=== PATIENT | female | born 1980 | race Caucasian/White ===

== ENCOUNTER 2018-06-02 09:50 | Outpatient (REF) | payer OTHER, SELFPAY ==
[2018-06-02 21:11] LABS: BUN 17 mg/dL (7-18); CREATININE 1.01 mg/dL (0.55-1.02); Chloride 100 mmol/L (98-107); Glucose 90 mg/dL (70-100); Potassium 4.5 mmol/L (3.5-5.1); Sodium 138 mmol/L (136-145)
== END 2018-06-02 10:10 ==
LOC: NCHCN 09:50
PROVIDERS: Visit Provider Specialist/Technologist Athletic Trainer
DX: Z00.00 Encounter for general adult medical examination without abnormal findings (principal); Z13.228 Encounter for screening for other metabolic disorders
CPT/HCPCS: 80048

== ENCOUNTER 2018-12-13 09:30 | Outpatient (REF) | payer OTHER, SELFPAY ==
--- NOTE | 2018-12-13 09:00 | PAPFT_PTH ---
PATIENT: Baylee Garcia V LOC: [facility] U#:[id number] AGE/SX: 38/F ROOM: RE12/13/[address]: JONNA Oh : 1980 BED: DIS: 12/13/2018 SPEC #: [id number] RECD: 12/13/18 11:51 STATUS: MARIO ALBERTO REZia #: [id number] MISAEL: 12/13/18 09:[address]: Lia Savage DEPT: [facility] Cytology RECD BY: Katya Huddleston Tissues: 1 - CX/ENDOCX FOR PAP SMEARS Procedures: PAP THIN PREP/[facility] Screening HPV DNA PROBE Comments: [id number]
== END 2018-12-13 09:50 ==
LOC: LBN 09:30
PROVIDERS: PCP Nurse Practitioner Family; Visit Provider Nurse Practitioner Family
DX: Z12.4 Encounter for screening for malignant neoplasm of cervix (principal); Z11.51 Encounter for screening for human papillomavirus (HPV)
CPT/HCPCS: 88142; 87624

== ENCOUNTER 2019-06-03 10:34 | Outpatient (REF) | payer OTHER, SELFPAY ==
[2019-06-03 19:17] LABS: Anion Gap 9.2 mmol/L (3-11); BUN 18 mg/dL (7-18); CO2 29.8 mmol/L (21.0-32.0); CREATININE 0.96 mg/dL (0.55-1.02); Calcium 9.6 mg/dL (8.5-10.1); Chloride 102 mmol/L (98-107); Glucose 89 mg/dL (74-106); Potassium 4.7 mmol/L (3.5-5.1); Sodium 141 mmol/L (136-145)
== END 2019-06-03 10:54 ==
LOC: NCHCN 10:34
PROVIDERS: PCP Nurse Practitioner Family; Visit Provider Specialist/Technologist Athletic Trainer
DX: Z00.00 Encounter for general adult medical examination without abnormal findings (principal); R03.0 Elevated blood-pressure reading, without diagnosis of hypertension
CPT/HCPCS: 80048

== ENCOUNTER 2020-06-01 10:21 | Outpatient (REF) | payer OTHER, SELFPAY ==
[2020-06-01 19:45] LABS: Anion Gap 9.8 mmol/L (3-11); BUN 16 mg/dL (7-18); CO2 27.2 mmol/L (21.0-32.0); CREATININE 1.02 mg/dL (0.55-1.02); Calcium 9.2 mg/dL (8.5-10.1); Calculated LDL 92 mg/dL (<100); Chloride 102 mmol/L (98-107); Cholesterol 158 mg/dL (<200); Glucose 90 mg/dL (74-106); HDL Cholesterol 35 mg/dL (40-60); Potassium 4.6 mmol/L (3.5-5.1); Sodium 139 mmol/L (136-145); TSH 2.74 uIU/mL (0.36-3.74); Triglyceride 156 mg/dL (<150)
[2020-06-04 05:54] LABS: Vitamin D 25 Total 36.4 ng/ml (30-100)
== END 2020-06-01 10:41 ==
LOC: NCHCN 10:21
PROVIDERS: PCP Nurse Practitioner Family; Visit Provider Nurse Practitioner Family
DX: Z00.00 Encounter for general adult medical examination without abnormal findings (principal); I10 Essential (primary) hypertension; R53.83 Other fatigue; R63.5 Abnormal weight gain
CPT/HCPCS: 80048; 80061; 82306; 84443

== ENCOUNTER 2021-05-27 19:44 | Outpatient (REF) | payer OTHER, SELFPAY ==
[2021-05-27 18:17] LABS: Hemoglobin A1C 5.5 % (<5.7)
[2021-05-27 18:56] LABS: Anion Gap 11.5 mmol/L (3-11); BUN 18 mg/dL (7-18); CO2 26.5 mmol/L (21.0-32.0); Chloride 101 mmol/L (98-107); Glucose 86 mg/dL (74-106); Potassium 4.2 mmol/L (3.5-5.1); Sodium 139 mmol/L (136-145); TSH (W/Ref FT4) 2.88 uIU/mL (0.36-3.74); Vitamin B12 448 pg/mL (193-986)
== END 2021-05-27 19:45 | disposition home or self-care (01) ==
LOC: NCHCN 19:44
PROVIDERS: PCP Nurse Practitioner Family; Visit Provider Nurse Practitioner Family
DX: I10 Essential (primary) hypertension (principal); R20.2 Paresthesia of skin
CPT/HCPCS: 80048; 82607; 83036; 84443

== ENCOUNTER 2022-01-13 10:24 | Outpatient (REF) | payer OTHER, SELFPAY ==
--- NOTE | 2022-01-13 10:00 | PAPFT_PTH ---
PATIENT: Baylee Garcia V LOC: [facility] U#:[id number] AGE/SX: 41/F ROOM: RE01/13/[address]: JONNA Oh : 1980 BED: DIS: 01/13/2022 SPEC #: [id number] RECD: 01/13/22 12:33 STATUS: MARIO ALBERTO REQ #: [id number] MISAEL: 01/13/22 10:[address]: Lia Savage DEPT: [facility] Cytology RECD BY: Kami Aragon ENTERED: 01/13/22 12:33 SP TYPE: PAPFT OTHR DR: Adri Cherry Tissues: 1 - CX/ENDOCX FOR PAP SMEARS Procedures: PAP THIN PREP/[facility] Screening HPV DNA PROBE Comments: [id number]
== END 2022-01-13 10:25 | disposition home or self-care (01) ==
LOC: LBN 10:24
PROVIDERS: PCP Nurse Practitioner Family; Visit Provider Nurse Practitioner Family
DX: Z12.4 Encounter for screening for malignant neoplasm of cervix (principal); Z11.51 Encounter for screening for human papillomavirus (HPV)
CPT/HCPCS: 88142; 87624

== ENCOUNTER 2022-09-03 17:01 | Outpatient (REF) | payer OTHER, SELFPAY ==
[2022-09-03 17:36] LABS: Calculated LDL 79 mg/dL (<100); Cholesterol 149 mg/dL (<200); HDL Cholesterol 40 mg/dL (40-60); Triglyceride 152 mg/dL (<150)
== END 2022-09-03 17:02 | disposition home or self-care (01) ==
LOC: NCHCN 17:01
PROVIDERS: PCP Nurse Practitioner Family; Visit Provider Nurse Practitioner Family
DX: I10 Essential (primary) hypertension (principal); E78.1 Pure hyperglyceridemia
CPT/HCPCS: 80061

== ENCOUNTER 2023-01-01 15:46 | Outpatient (REF) | payer OTHER, SELFPAY ==
--- NOTE | 2023-01-01 09:30 | SKI_PTH ---
PATIENT: Baylee Garcia V LOC: [facility]#:[id number] AGE/SX: 42/F ROOM: RE01/01/[address]: Miriam Ruiz : 1980 BED: DIS: 01/01/2023 SPEC #: [id number] RECD: 01/01/23 17:16 STATUS: MARIO ALBERTO REQ #: [id number] MISAEL: 01/01/23 09:[address]: Miriam Ruiz DEPT: Surgical Specimen RECD BY: Kami Aragon ENTERED: 01/01/23 17:18 SP TYPE: SKI OTHR DR: Adri Cherry Tissues: 1 - SKIN BIOPSY(SHAVE/PUNCH) Procedures: SKIN LEVEL 4 Comments: [id number]
== END 2023-01-01 15:47 | disposition home or self-care (01) ==
LOC: NCHCN 15:46
PROVIDERS: PCP Nurse Practitioner Family; Visit Provider Nurse Practitioner Family
DX: L98.8 Other specified disorders of the skin and subcutaneous tissue (principal); L81.8 Other specified disorders of pigmentation; L30.8 Other specified dermatitis
CPT/HCPCS: 88305

== ENCOUNTER → 2023-02-25 01:45 | Outpatient (CLI) | payer OTHER, SELFPAY ==
--- NOTE | 2023-02-25 08:45 | DI.MAMMO_ITS ---
Exam(s) MAMMO SCREENING EXAM: MAMMO SCREENING CLINICAL HISTORY: screening. TECHNIQUE: Bilateral full field digital CC and MLO mammographic images were obtained with 3D tomosyn thesis and utilizing computer aided detection (CAD). COMPARISON: None. This is a baseline mammogram on this 42-year-old patient. FINDINGS: Nodular density in the upper-outer quadrant of the right breast has the appearance of a probable kristina gn intramammary lymph node. There also a few other asymmetric densities-possible small nodules which also have benign appearance, probably benign intramammary lymph nodes. There are no spiculated masses nor malignant appearing microcalcification groups. There is no significant architectural distortion nor skin thickening-retraction. IMPRESSION: None findings. No radiographic evidence malignancy. BI-RADS Category 2 - Benign Findings Breast Density - Category B - Scattered areas of fibroglandular density Breast density Category C or D implies that the patient has dense breast tissue. Dense breast tissue can make it harder to find cancer on a mammogram. Dense breast tissue is also associated with an incr eased risk of breast cancer. This information about the result of the mammogram report was provided to the patient to raise their awareness. Use this report when you speak with the patient about their risks for breast cancer, which includes their family history. At that time, you may recommend additional screening tests (Ultrasoun d or MRI) as these tests may add significant information. A negative radiographic report should not delay biopsy if a dominant or clinically suspicious mass is present. Up to ten percent of cancers are not identified on mammography. A negative report may reinforce clinical impression. Adenosis and dense breasts may obscure an underlying neoplasm. False positive reports average 6 to 10%. Patient will receive a letter notifying them of these results.
== END ==
PROVIDERS: PCP Nurse Practitioner Family; Visit Provider Nurse Practitioner Women's Health
DX: Z12.31 Encounter for screening mammogram for malignant neoplasm of breast (principal)
CPT/HCPCS: 77063; 77067

== ENCOUNTER 2023-02-25 03:21 | Outpatient (CLI) | payer OTHER, SELFPAY ==
[2023-02-25 18:29] LABS: Prolactin 139.7 ng/mL (See Note)
== END 2023-02-25 03:22 | disposition home or self-care (01) ==
LOC: LBO 03:21
PROVIDERS: PCP Nurse Practitioner Family; Visit Provider Nurse Practitioner Women's Health
DX: E22.1 Hyperprolactinemia (principal); N91.2 Amenorrhea, unspecified
CPT/HCPCS: 36415; 84146

== ENCOUNTER 2023-06-01 18:08 | Outpatient (REF) | payer OTHER, SELFPAY ==
[2023-06-01 16:08] LABS: ESR 57 mm/hr (0-20)
[2023-06-01 16:28] LABS: Albumin 3.8 g/dL (3.4-5.0); Alkaline Phosphatase 82 U/L (46-116); BUN 17 mg/dL (7-18); Bilirubin, Total 0.9 mg/dL (0.2-1.0); Calcium 9.9 mg/dL (8.5-10.1); Estimated GFR 73.04 (mL/min/1.73m2); Glucose 111 mg/dL (74-106); Sodium 137 mmol/L (136-145); Total Protein 8.1 g/dL (6.4-8.2)
[2023-06-01 16:29] LABS: ALT 39 U/L (14-59); AST 25 U/L (15-37); Anion Gap 9.5 mmol/L (3-11); C-Reactive Protein 2.49 mg/dL (0.0-0.3); CO2 26.5 mmol/L (21.0-32.0); Chloride 101 mmol/L (98-107); Potassium 4.3 mmol/L (3.5-5.1)
[2023-06-01 16:35] LABS: Hemoglobin A1C 5.5 % (<5.7)
== END 2023-06-01 18:09 | disposition home or self-care (01) ==
LOC: NCHCN 18:08
PROVIDERS: PCP Nurse Practitioner Family; Visit Provider Nurse Practitioner Family
DX: I10 Essential (primary) hypertension (principal); G89.29 Other chronic pain; R79.82 Elevated C-reactive protein (CRP); R70.0 Elevated erythrocyte sedimentation rate; R73.09 Other abnormal glucose
CPT/HCPCS: 80053; 85652; 83036; 86140

== ENCOUNTER 2023-07-07 03:38 | Outpatient (CLI) | payer MEDICAID, SELFPAY ==
[2023-07-07 18:08] LABS: Rheumatoid Factor <8.6 IU/mL (<12.0)
[2023-07-08 12:02] LABS: ANA Interpretation Negative (Negative)
== END 2023-07-07 03:39 | disposition home or self-care (01) ==
PROVIDERS: PCP Nurse Practitioner Family; Visit Provider Nurse Practitioner Family
DX: R53.83 Other fatigue (principal); R79.82 Elevated C-reactive protein (CRP)
CPT/HCPCS: 36415; 84443; 86038; 86431

== ENCOUNTER → 2023-11-10 14:02 | Outpatient (CLI) | payer MEDICAID, SELFPAY ==
--- NOTE | 2023-11-10 | DI.RAD_ITS ---
Exam(s) XR CHEST 2V PA LATERAL EXAM: XR CHEST 2V PA LATERAL CLINICAL HISTORY: R05.9 cough, x 5 days, SOB TECHNIQUE: 2D digital imaging was performed of the chest. Two images were obtained. PA and lateral views were obtained. COMPARISON: No exams were available for comparison FINDINGS: There is poor inspiration with crowding of the vessels. MEDIASTINUM: Normal. HEART: Normal. PULMONARY VASCULATURE: Normal. LUNGS: There is an opacity in the right perihilar region suspicious for an infiltrate. On the latera l view, it appears to lie in the right lower lobe. There may also be a left perihilar component of t he infiltrate. PLEURAL SPACE: No pleural effusion or pneumothorax. BONE:Within normal limits for the patient's age. OTHER FINDINGS:There is elevation of the right hemidiaphragm. IMPRESSION: There is a right lower lobe opacity. In the appropriate clinical setting pneumonia should be conside red. A follow-up examination in 1 month is recommended to document complete resolution and to exclud e other etiology. If the finding persists at that time, a CT scan of the chest with contrast should be obtained for further characterization. DATA REPOSITORY: RADIATION DOSE DELIVERED:
== END ==
PROVIDERS: PCP Nurse Practitioner Family; Visit Provider Nurse Practitioner Family
DX: R91.8 Other nonspecific abnormal finding of lung field (principal)
CPT/HCPCS: 71046

== ENCOUNTER → 2023-12-08 02:03 | Outpatient (CLI) | payer MEDICAID, SELFPAY ==
--- NOTE | 2023-12-08 10:03 | DI.RAD_ITS ---
Exam(s) XR CHEST 2V PA LATERAL EXAM: XR CHEST 2V PA LATERAL CLINICAL HISTORY: COMMUNITY ACQUIRED PNEUMONIA, J18.9, F/U PNEUMONIA TECHNIQUE: 2D digital imaging was performed. Two views. COMPARISON: CR XR CHEST 2V PA LATERAL from 11/10/2023 FINDINGS: HEART: Normal size. Aorta: Not dilated. PULMONARY VASCULATURE: Normal. MEDIASTINUM: Unremarkable. LUNGS: Clear. Previously noted right perihilar opacity no longer present. PLEURAL SPACE: No pleural effusion or pneumothorax. BONE:Unremarkable for age. SOFT TISSUES: Unremarkable. IMPRESSION: Resolution of previously noted right lower lobe pneumonia. DATA REPOSITORY: RADIATION DOSE DELIVERED:
== END ==
PROVIDERS: PCP Nurse Practitioner Family; Visit Provider Nurse Practitioner Family
DX: J18.9 Pneumonia, unspecified organism (principal)
CPT/HCPCS: 71046

== ENCOUNTER 2024-09-19 18:22 | Outpatient (REF) | payer MEDICAID, SELFPAY ==
[2024-09-19 19:10] LABS: Bilirubin Negative (Negative); Blood Small (Negative); Clarity Clear (Clear); Glucose Negative (Negative); Ketones Negative (Negative); Leukocyte Esterase Negative (Negative); Nitrite Negative (Negative); Specific Gravity 1.015 (1.005-1.025); Urobilinogen 0.2 mg/dL (Up to 0.2); pH 5.5 (5-8)
[2024-09-19 19:19] LABS: Bacteria Negative HPF (Negative); C & S Indicated? No/Sq. Contamination; Casts Negative LPF (Negative); Crystals Negative HPF (Negative); Epithelial Cells Many HPF (Negative); Mucus Negative (Negative); RBC 0-2 HPF (0-2); WBC Negative HPF (0-5)
== END 2024-09-19 18:23 | disposition home or self-care (01) ==
LOC: NCHCN 18:22
PROVIDERS: PCP Nurse Practitioner Family; Visit Provider Nurse Practitioner Family
DX: R30.0 Dysuria (principal)
CPT/HCPCS: 81003; 81015; 87480; 87510; 87660

== ENCOUNTER 2024-10-07 16:19 | Outpatient (REF) | payer MEDICAID, SELFPAY ==
[2024-10-13 15:10] LABS: Interpretation 100% Uric acid.; Source: Passed Stone
== END 2024-10-07 16:20 | disposition home or self-care (01) ==
LOC: NCHCN 16:19
PROVIDERS: PCP Nurse Practitioner Family; Visit Provider Family Medicine
DX: N20.0 Calculus of kidney (principal)
CPT/HCPCS: 82365

== ENCOUNTER 2024-10-26 09:10 | Outpatient (REF) | payer MEDICAID, SELFPAY ==
[2024-10-26 20:00] LABS: Anion Gap 9.3 mmol/L (3-11); BUN 24 mg/dL (7-18); CO2 26.7 mmol/L (21.0-32.0); CREATININE 1.4 mg/dL (0.55-1.02); Calcium 9.9 mg/dL (8.5-10.1); Chloride 103 mmol/L (98-107); Estimated GFR 48.17 (mL/min/1.73m2); Glucose 167 mg/dL (74-106); Potassium 4.3 mmol/L (3.5-5.1); Sodium 139 mmol/L (136-145)
[2024-10-26 20:59] LABS: Hemoglobin A1C 5.7 % (<5.7)
[2024-10-28 09:57] LABS: HIV-1/2 Ag & Ab Screen Negative (Negative)
[2024-10-28 10:21] LABS: Hepatitis C Ab w Rflx HCV PCR Negative (Negative)
== END 2024-10-26 09:11 | disposition home or self-care (01) ==
LOC: NCHCN 09:10
PROVIDERS: PCP Nurse Practitioner Family; Visit Provider Nurse Practitioner Family
DX: N20.0 Calculus of kidney (principal); Z00.00 Encounter for general adult medical examination without abnormal findings
CPT/HCPCS: 80048; 86803; 87389; 83036; 84550

== ENCOUNTER 2024-11-24 09:30 | Outpatient (REF) | payer MEDICAID, SELFPAY ==
[2024-11-24 16:38] LABS: Anion Gap 10.4 mmol/L (3-11); BUN 22 mg/dL (7-18); CO2 27.6 mmol/L (21.0-32.0); CREATININE 1.4 mg/dL (0.55-1.02); Calcium 9.5 mg/dL (8.5-10.1); Chloride 102 mmol/L (98-107); Estimated GFR 48.17 (mL/min/1.73m2); Glucose 121 mg/dL (74-106); Potassium 4.5 mmol/L (3.5-5.1); Sodium 140 mmol/L (136-145); Vitamin D 25 Total 39 ng/mL (30-100)
== END 2024-11-24 09:31 | disposition home or self-care (01) ==
LOC: NCHCN 09:30
PROVIDERS: PCP Nurse Practitioner Family; Visit Provider Nurse Practitioner Family
DX: Z00.00 Encounter for general adult medical examination without abnormal findings (principal); I10 Essential (primary) hypertension; E79.0 Hyperuricemia without signs of inflammatory arthritis and tophaceous disease
CPT/HCPCS: 80048; 82306; 84550

== ENCOUNTER 2025-02-20 16:28 | Outpatient (REF) | payer MEDICAID, SELFPAY ==
[2025-02-20 15:57] LABS: Anion Gap 9.0 mmol/L (3-11); BUN 20 mg/dL (7-18); CO2 27.0 mmol/L (21.0-32.0); Calcium 9.9 mg/dL (8.5-10.1); Chloride 101 mmol/L (98-107); Estimated GFR 57.96 (mL/min/1.73m2); Glucose 129 mg/dL (74-106); Potassium 4.3 mmol/L (3.5-5.1); Sodium 137 mmol/L (136-145); Uric Acid 8.2 mg/dL (2.6-6.0)
== END 2025-02-20 16:29 | disposition home or self-care (01) ==
LOC: NCHCN 16:28
PROVIDERS: PCP Nurse Practitioner Family; Visit Provider Nurse Practitioner Family
DX: E79.0 Hyperuricemia without signs of inflammatory arthritis and tophaceous disease (principal)
CPT/HCPCS: 80048; 84550